=== PATIENT | male | born 1990 | race African-American/Black ===

== ENCOUNTER 2018-05-13 22:11 | Emergency (ER) | payer SELFPAY ==
[2018-05-13] MEDS ORDERED: NA CHLORIDE 0.9% 1,000 ML ONE (22:39)
[2018-05-13 22:57] LABS: Absolute Lymphocytes (CBC) 0.9 K/uL (0.7-4.9); Absolute Monocytes 0.8 K/uL (0.1-1.3); Absolute Neutrophil 16.5 K/uL (1.8-8.0); Basophils % 0.9 % (0-1.3); Hematocrit 43.6 % (39.6-49.0); Lymphocytes % 4.8 % (15.3-44.8); MCH 29.8 pg (27.0-35.0); MCV 92.5 fL (80-100); Monocytes % 4.5 % (3.3-12.3); RBC Red Blood Cell Count 4.72 M/uL (4.33-5.43)
[2018-05-13] MEDS ORDERED: ONDANSETRON 4 MG/2 ML VIAL ONE (23:00)
[2018-05-13 23:49] LABS: Magnesium 2.4 mg/dL (1.8-2.4); Potassium 3.7 mmol/L (3.5-5.1)
[2018-05-13 23:50] LABS: Barbiturates NEGATIVE (NEGATIVE); Benzodiazepines POSITIVE (NEGATIVE); Cocaine NEGATIVE (NEGATIVE); METHAMPHETAM POSITIVE (NEGATIVE); Methadone NEGATIVE (NEGATIVE); Opiates NEGATIVE (NEGATIVE); Phencyclidine NEGATIVE (NEGATIVE); THC Cannibis POSITIVE (NEGATIVE)
[2018-05-14 00:39] LABS: Urine Blood 2+ (NEG); Urine Glucose NEGATIVE (NEG); Urine Protein 2+ (NEG); Urine Specific Gravity >1.030 (1.005-1.030); Urine pH 5.5 (5.0-7.0)
[2018-05-14 00:50] LABS: Blood Morphology Comment NOTED (NOT SEEN); Burr Cells 2+; Platelet Estimate ADEQ
--- NOTE | 2018-05-14 01:00 | ER ---
Nurse's Notes [facility] Name: Mitch Razo Age: 28 yrs Sex: Male : 1990 Arrival Date: 05/13/2018 Time: 22:13 Bed 8 Private MD: Diagnosis: Seizure;Polysubstance Abuse;Dehydration Presentation: 05/13 22:13 Presenting complaint: EMS states: [place] stated they tl2 witnessed a "seizure like episode" that caused him to fall. Denies head injury. Pt AOx3 but is slow to respond, appears drowsy. BGL 145. Smells of ETOH and THC but pt denies use. Transition of care: patient was not received from another setting of care. Onset of symptoms was May 13, 2018 at 21:30. Risk Assessment: Do you want to hurt yourself or someone else? Patient reports no desire to harm self or others. Initial Sepsis Screen: Does the patient meet any 2 criteria? No. Patient's initial sepsis screen is negative. Does the patient have a suspected source of infection? No. Patient's initial sepsis screen is negative. Care prior to arrival: Medication(s) given: Normal saline infusion, 500 mL, IV initiated. 18 GA, in the right antecubital area, Glucose check: 145. 22:13 Method Of Arrival: EMS: [facility] tl2 22:13 Acuity: KAITLIN 3 tl2 Triage Assessment: 22:18 General: Appears in no apparent distress. uncomfortable, Behavior is appropriate for tl2 age, anxious, drowsy, Smells of alcohol, THC. Pain: Denies pain. Neuro: Level of Consciousness is awake, obeys commands, stuporous, Oriented to person, place, time, situation, Speech is normal. Cardiovascular: Denies chest pain. Respiratory: Airway is patent Respiratory effort is even, unlabored, Respiratory pattern is regular, symmetrical. GI: No signs and/or symptoms were reported involving the gastrointestinal system. : No signs and/or symptoms were reported regarding the genitourinary system. Derm: Skin is diaphoretic, Skin is normal. Historical: - Allergies: 22:18 No Known Allergies; tl2 - Home Meds: 22:18 None [Active]; tl2 - PMHx: 22:18 None; tl2 - Immunization history:: Adult Immunizations up to date. - Social history:: Smoking status: Patient/guardian denies using tobacco. - Ebola Screening: : No symptoms or risks identified at this time. Screenin:22 Abuse screen: Denies threats or abuse. Nutritional screening: No deficits noted. tl2 Tuberculosis screening: No symptoms or risk factors identified. Fall Risk IV access (20 points). Gait- Impaired (20 pts.). Assessment: 22:22 General: see triage assessment. tl2 23:02 Reassessment: Patient appears in no apparent distress at this time. Patient and/or tl2 family updated on plan of care and expected duration. Pain level reassessed. Patient is alert, oriented x 3, equal unlabored respirations, skin warm/dry/pink. Pt c/o nausea, notified, new order see JAN. 05/14 00:00 Reassessment: Patient appears in no apparent distress at this time. Patient and/or tl2 family updated on plan of care and expected duration. Pain level reassessed. Patient is alert, oriented x 3, equal unlabored respirations, skin warm/dry/pink. 01:00 Reassessment: Patient appears in no apparent distress at this time. Patient and/or tl2 family updated on plan of care and expected duration. Pain level reassessed. Patient is alert, oriented x 3, equal unlabored respirations, skin warm/dry/pink. Pt is ambulatory and feeling better, states that he wants to go home Patient states feeling better. 01:33 Reassessment: Patient appears in no apparent distress at this time. Pt and family tl2 verbalized understanding of discharge instructions and need for follow up. Vital Signs: 05/13 22:22 BP 128 / 73; Pulse 92; Resp 18; Temp 97.5(O); Pulse Ox 100% on R/A; Weight 99.79 kg; tl2 Height 5 ft. 9 in. (175.26 cm); Pain 0/10; 23:22 BP 128 / 80; Pulse 82; Resp 18; Pulse Ox 100% on R/A; tl2 05/14 00:45 BP 135 / 100; Pulse 79; Resp 18; Pulse Ox 100% on R/A; tl2 01:33 BP 112 / 60; Pulse 80; Resp 18; Pulse Ox 100% on R/A; tl2 05/13 22:22 Body Mass Index 32.49 (99.79 kg, 175.26 cm) tl2 ED Course: 05/13 22:13 Patient arrived in ED. tl2 22:13 Remi Hand MD is Attending Physician. ps1 22:18 Triage completed. tl2 22:22 Shayla Zhang RN is Primary Nurse. tl2 22:22 Arm band placed on right wrist. tl2 22:22 Patient has correct armband on for positive identification. Bed in low position. Call tl2 light in reach. Side rails up X2. Adult w/ patient. 22:22 Maintain EMS IV. Dressing intact. Good blood return noted. Site clean \\T\\ dry. Gauge \\T\\ tl 2 site: 18 g R AC. 23:00 XRAY Chest (1 view) In Process Unspecified. EDMS 23:18 Urine collected: clean catch specimen, clear. aa1 05/14 01:08 Remy Charles MD is Referral Physician. ps1 01:33 No provider procedures requiring assistance completed. IV discontinued, intact, tl2 bleeding controlled, No redness/swelling at site. Pressure dressing applied. Administered Medications: 05/13 22:43 Drug: NS 0.9% 1000 ml Route: IV; Rate: 1 bolus; Site: right antecubital; tl2 05/14 01:34 Follow up: IV Status: Completed infusion; IV Intake: 1000ml tl2 05/13 23:03 Drug: Zofran 4 mg Route: IVP; Site: right antecubital; tl2 05/14 01:35 Follow up: Response: No adverse reaction; Nausea is decreased tl2 Point of Care Testing: Blood Glucose: 05/13 22:22 Blood Glucose: 145 mg/dL; tl2 Ranges: Intake: 05/14 01:34 IV: 1000ml; Total: 1000ml. tl2 Outcome: 01:00 Discharge ordered by . ps1 01:33 Discharged to home ambulatory, with family. tl2 01:33 Condition: stable 01:33 Discharge instructions given to patient, family, Instructed on discharge instructions, follow up and referral plans. Demonstrated understanding of instructions, follow-up care. 01:35 Patient left the ED. tl2 Signatures: Dispatcher [employer] EDMS Fatuma Zhu RN RN aa1 Shayla Zhang RN RN tl2 Remi Hand MD MD ps1 Corrections: (The following items were deleted from the chart) 05/13 22:24 22:18 Derm: Skin is pink, warm \\T\\ dry. tl2 tl2
--- NOTE | 2018-05-14 01:00 | EDPHYS ---
Physician Documentation [facility] Name: Mitch Razo Age: 28 yrs Sex: Male : 1990 Arrival Date: 05/13/2018 Time: 22:13 Bed 8 Private MD: ED Physician Remi Hand HPI: 05/13 22:27 This 28 yrs old Male presents to ER via EMS with complaints of Near Syncope. ps1 22:27 patient [place] and just got there. No history of seizure or passing out ps1 before in the past. States that he was sweaty and got lightheaded and had a syncopal event. No tongue biting. Reportedly did not drink or use ETOH. No synthetic marijuana. Reportedly had shaking that lasted seconds to maybe a minute. Now is fatigued, alert and oriented. . Historical: - Allergies: 22:18 No Known Allergies; tl2 - Home Meds: 22:18 None [Active]; tl2 - PMHx: 22:18 None; tl2 - Immunization history:: Adult Immunizations up to date. - Social history:: Smoking status: Patient/guardian denies using tobacco. - Ebola Screening: : No symptoms or risks identified at this time. ROS: 22:27 Constitutional: Negative for fever, chills, and weight loss, Eyes: Negative for injury, ps1 pain, redness, and discharge, Cardiovascular: Negative for chest pain, palpitations, and edema, Respiratory: Negative for shortness of breath, cough, wheezing, and pleuritic chest pain, Abdomen/GI: Negative for abdominal pain, nausea, vomiting, diarrhea, and constipation, MS/Extremity: Negative for injury and deformity. 22:27 Skin: Positive for diaphoresis. 22:27 Neuro: Positive for seizure activity, syncope. Exam: 22:27 Constitutional: This is a well developed, well nourished patient who is awake, alert, ps1 and in no acute distress. Head/Face: Normocephalic, atraumatic. Chest/axilla: Normal chest wall appearance and motion. Nontender with no deformity. No lesions are appreciated. Cardiovascular: Regular rate and rhythm. No gallops, murmurs, or rubs. Normal PMI, no JVD. No pulse deficits. Respiratory: Lungs have equal breath sounds bilaterally, clear to auscultation and percussion. No rales, rhonchi or wheezes noted. No increased work of breathing, no retractions or nasal flaring. Abdomen/GI: Soft, non-tender, with normal bowel sounds. No distension or tympany. No guarding or rebound. No evidence of tenderness throughout. Skin: Warm, dry with normal turgor. Normal color with no rashes, no lesions, and no evidence of cellulitis. MS/ Extremity: Pulses equal, no cyanosis. Neurovascular intact. Full, normal range of motion. Neuro: Awake and alert, GCS 15, oriented to person, place, time, and situation. Cranial nerves II-XII grossly intact. Sensory grossly intact. Vital Signs: 22:22 BP 128 / 73; Pulse 92; Resp 18; Temp 97.5(O); Pulse Ox 100% on R/A; Weight 99.79 kg; tl2 Height 5 ft. 9 in. (175.26 cm); Pain 0/10; 23:22 BP 128 / 80; Pulse 82; Resp 18; Pulse Ox 100% on R/A; tl2 05/14 00:45 BP 135 / 100; Pulse 79; Resp 18; Pulse Ox 100% on R/A; tl2 01:33 BP 112 / 60; Pulse 80; Resp 18; Pulse Ox 100% on R/A; tl2 05/13 22:22 Body Mass Index 32.49 (99.79 kg, 175.26 cm) tl2 MDM: 05/13 22:34 Patient medically screened. ps1 05/14 01:01 Differential Diagnosis: seizure, vasovagal episode, Syncope. Data reviewed: vital ps1 signs, nurses notes, EMS record, lab test result(s). Counseling: I had a detailed discussion with the patient and/or guardian regarding: the historical points, exam findings, and any diagnostic results supporting the discharge/admit diagnosis, the need for outpatient follow up, for definitive care, a neurologist. Response to treatment: the patient's symptoms have markedly improved after treatment, the patient's symptoms have resolved after treatment, mental status has returned to baseline. Special discussion: Based on the history and exam findings, there is no indication for further emergent testing or inpatient evaluation. I discussed with the patient/guardian the need to see the neurologist for further evaluation of the symptoms. 05/13 22:34 Order name: Troponin (emerg Dept Use Only) ps1 06/23 22:34 Order name: Basic Metabolic Panel; Complete Time: 00: [facility] 05/13 22:34 Order name: CBC with Diff; Complete Time: 01: [facility] 05/14 01:03 Interpretation: Abnormal: WBC 18.3. ps1 05/13 22:34 Order name: Magnesium; Complete Time: 00: ps1 05/13 22:34 Order name: Urine Drug Screen; Complete Time: 00: [facility] 05/14 01:03 Interpretation: BZO POSITIVE; METHAMPHETAMINE POSITIVE; THC POSITIVE. ps1 05/13 22:34 Order name: Lactate; Complete Time: 00: ps1 05/14 01:04 Interpretation: Abnormal: LAC 7.4. ps1 05/13 22:34 Order name: XRAY Chest (1 view) ps1 05/13 22:34 Order name: EKG; Complete Time: 22:34 [facility] 05/13 22:34 Order name: ETOH Level; Complete Time: 00: [facility] 05/14 01:04 Interpretation: Within normal limits: ETOH 6. [facility] 05/13 22:34 Order name: Troponin (Emerg Dept Use Only); Complete Time: 23:16 EDMS 05/13 23:12 Order name: Manual Differential; Complete Time: 01:03 EDMS 05/13 23:26 Order name: Urine Dipstick--Ancillary (enter results); Complete Time: 00:44 [facility] 05/14 01:04 Interpretation: USPGR >1.030. ps1 05/13 22:34 Order name: Cardiac monitoring; Complete Time: 22:43 [facility] 05/13 22:34 Order name: EKG - Nurse/Tech; Complete Time: 22:43 [facility] 05/13 22:34 Order name: IV Saline Lock; Complete Time: 22:43 [facility] 05/13 22:34 Order name: Labs collected and sent; Complete Time: 22:43 [facility] 05/13 22:34 Order name: O2 Per Protocol; Complete Time: 22:43 [facility] 05/13 22:34 Order name: O2 Sat Monitoring; Complete Time: 22:43 [facility] 05/13 22:34 Order name: Urine Dipstick-Ancillary (obtain specimen); Complete Time: 23:16 ps1 Administered Medications: 05/13 22:43 Drug: NS 0.9% 1000 ml Route: IV; Rate: 1 bolus; Site: right antecubital; tl2 05/14 01:34 Follow up: IV Status: Completed infusion; IV Intake: 1000ml tl2 05/13 23:03 Drug: Zofran 4 mg Route: IVP; Site: right antecubital; tl2 05/14 01:35 Follow up: Response: No adverse reaction; Nausea is decreased tl2 Point of Care Testing: Blood Glucose: 05/13 22:22 Blood Glucose: 145 mg/dL; tl2 Ranges: Critical Glucose Levels:Adult <50 mg/dl or >400 mg/dl <40 mg/dl or >180 mg/dl Disposition: 05/14/18 01:00 Discharged to Home. Impression: Seizure, Polysubstance Abuse, Dehydration. - Condition is Stable. - Discharge Instructions: Dehydration, Adult, Seizure, Adult, [id number]. - Medication Reconciliation Form, Thank You Letter, Antibiotic Education, Prescription Opioid Use form. - Follow up: Private Physician; When: As needed; Reason: Further diagnostic work-up, Recheck today's complaints, Continuance of care, Re-evaluation by your physician. Follow up: Emergency Department; When: As needed; Reason: Worsening of condition. Follow up: Remy Charles MD; When: 1 week; Reason: If symptoms return, Further diagnostic work-up. - Problem is new. - Symptoms have improved. Signatures: Dispatcher [employer] EDMS Shayla Zhang RN RN tl2 Remi Hand MD MD ps1 Corrections: (The following items were deleted from the chart) 05/14 01:09 01:00 05/14/2018 01:00 Discharged to Home. Impression: Seizure; Polysubstance Abuse; ps1 Dehydration. Condition is Stable. Forms are Medication Reconciliation Form, Thank You Letter, Antibiotic Education, Prescription Opioid Use. Follow up: Private Physician; When: As needed; Reason: Further diagnostic work-up, Recheck today's complaints, Continuance of care, Re-evaluation by your physician. Follow up: Emergency Department; When: As needed; Reason: Worsening of condition. Problem is new. Symptoms have improved. ps1 01:35 01:09 05/14/2018 01:00 Discharged to Home. Impression: Seizure; Polysubstance Abuse; tl2 Dehydration. Condition is Stable. Discharge Instructions: Dehydration, Adult, Seizure, Adult, [id number]. Forms are Medication Reconciliation Form, Thank You Letter, Antibiotic Education, Prescription Opioid Use. Follow up: Private Physician; When: As needed; Reason: Further diagnostic work-up, Recheck today's complaints, Continuance of care, Re-evaluation by your physician. Follow up: Emergency Department; When: As needed; Reason: Worsening of condition. Follow up: Remy Charles; When: 1 week; Reason: If symptoms return, Further diagnostic work-up. Problem is new. Symptoms have improved. ps1
--- NOTE | 2018-05-14 09:38 | RAD REPORT ---
EXAM DESCRIPTION: RAD - Chest Single View - 05/13/2018 11:00 pm CLINICAL HISTORY: Syncope, seizure, shortness of breath COMPARISON: None. TECHNIQUE: AP portable chest image was obtained 2247 hours . FINDINGS: Lungs are clear. Heart and vasculature are normal. No measurable pleural effusion and no p neumothorax. No gross bony abnormality seen. No acute aortic findings suspected. IMPRESSION: No acute cardiopulmonary process.
--- NOTE | 2018-05-15 06:54 | EKG ---
Test Date: 2018-05-13 Test Time: 22:41:22 [employer] Work[employer]: LESTER MEASUREMENT RESULTS: Intervals: Rate: 84 AR: 128 QRSD: 88 QT: 368 QTc: 434 [place]: P: 21 AR: 128 QRS: 75 T: 38 INTERPRETIVE STATEMENTS: Normal sinus rhythm Normal ECG No previous ECG available for comparison Electronically Signed On 05-15-18 06:53:37 CDT by Manuelito Parish
== END 2018-05-14 01:35 | disposition home or self-care (01) ==
LOC: ER 22:11
DX: G89.18 Other acute postprocedural pain (principal); R09.89 Other specified symptoms and signs involving the circulatory and respiratory systems
CPT/HCPCS: 36415; 71045; 80048; 80307; 80320; 81003; 83605; 83735; 84484; 85025; 93005; 96361; 96374; 99284; J2405; J7030